=== PATIENT | male | born 1945 | race Caucasian/White ===

== ENCOUNTER → 2016-07-23 | Outpatient (CLI) | payer MEDICARE ==
[~2016-07-23] MED LIST: AMLO5TAB2 PO; ASP81CT PO; CEFU500T5 PO; DABI150C2 PO; DOXA1TAB PO; DOXY100C2 PO; ENAL5TAB PO; GLUC-116 PO; HCT25T PO; HYDR-3729 PO; MTP25TSR PO; MULT1CAP27 PO; OXYC-12 PO; RNT150T PO; SIMV20TA3 PO
--- OUTSIDE RECORDS SUMMARY | 2016-07-23 10:14 | XMS REPORT | Continuity of Care Document ---
Author Author [facility] Organization [facility] Address Unknown Phone Unavailable Care Team Providers Care Drawer Fitter Name Role Phone SNEHAL BOYLE MD PCP Insurance Providers Payer Name Policy Number Subscriber Name Relationship Wps Medicare [id number] Shay Madison 18 Self / Same As Patient Blue Cross [facility] Supp [id number] Shay Madison 18 Self / Same As Patient Advance Directives Directive Response Recorded Date/Time Advance Directives No 12/12/15 5:28pm Health Care Power of Gift Packer No 12/12/15 5:28pm Organ Donor No 12/12/15 5:28pm Resuscitation Status Full Code 12/12/15 5:28pm Chief Complaint and Reason for Visit Chief Complaint Psych/Social Disorder Reason for Visit [id number] Problems Active Problems Medical Problem Onset Date Status Intractable headache Unknown Acute Suicidal ideations Unknown Acute Visual aura Unknown Acute Medications Current Home Medications Medication Dose Units Route Directions Days/Qty Instructions Start Date Simvastatin 20 Mg 20 Mg Oral Bedtime 11/18/11 Ranitidine Hcl 150 Mg 150 Mg Oral Daily 11/18/11 Dabigatran Etexilate Mesylate 150 Mg 150 Mg Oral Twice A Day Metoprolol Succinate 25 Mg 12.5 Mg Oral Bedtime 01/28/12 Gluc/Ej-Msm#2/C/D3/Kai/Born 1 Each 1 Each Oral 12/12/15 Doxazosin Mesylate 1 Mg 1 Mg Oral Daily 12/12/15 Past Home Medications Medication Directions Ordered Status Aspirin 81 Mg Chew, 81 Mg Oral Daily 11/18/11 Discontinued Multivitamins 1 Each Capsule, 1 Each Oral Daily 11/18/11 Discontinued Oxycodone Hcl/Acetaminophen 1 Each Tablet, 1 Each Oral Every 8HRS as needed 01/28/12 Discontinued Amlodipine Besylate (Norvasc 5 Mg) 5 Mg Tablet, 5 Mg Oral Daily 07/07/14 Discontinued Oxycodone Hcl/Acetaminophen 1 Each Tablet, 1-2 Each Oral Q4-6H Prn 07/13/14 Discontinued Doxycycline Hyclate 100 Mg Capsule, 100 Mg Oral Twice A Day 04/13/15 Discontinued Hydrocodone/Acetaminophen 1 Each Tablet, 1 Each Oral Every 4HRS as needed for Pain 04/13/15 Discontinued Social History Social History Problem Response Recorded Date/Time Alcohol Use Rarely Uses 12/12/2015 5:28pm Recreational Drug Use No 12/12/2015 5:28pm Recent Foreign Travel No 12/12/2015 5:28pm Recent Infectious Disease Exposure No 12/12/2015 5:28pm Smoking Status Never a Smoker 12/12/2015 5:28pm Do you dip or chew tobacco? Yes 12/12/2015 5:28pm Query Response Start Date Stop Date Smoking Status Never a Smoker 07/13/2011 Hospital Discharge Instructions No hospital discharge instructions. Plan of Care Discharge Date 12/12/15 8:15pm Disposition 09 ADMITTED INPATIENT Condition at Discharge Stable Prescriptions See Medication Section Referrals SNEHAL BOYLE MD - Primary Care Physician Functional Status No functional status results. Allergies, Adverse Reactions, Alerts Allergen Type Severity Reaction Status Last Updated hydroxyzine HCl Allergy Unknown Active 07/13/14 hydroxyzine pamoate Allergy Unknown Active 07/13/14 Latex Allergy Mild RASH Active 07/13/14 Immunizations Name Given Type Date of Pneumonia Vaccine 08/07/11 Historical Date of Influenza Vaccine 03/22/14 Historical Vital Signs Acute Vital Signs Vital Response Date/Time Temperature (Fahrenheit) 98.2 degrees F (97.6 - 99.5) 12/12/2015 5:28pm Temperature (Calculated Celsius) 36.28554 degrees C (36.4 - 37.5) 12/12/2015 5:28pm Temperature Source Temporal 12/12/2015 5:28pm Pulse Rate (adult) 54 bpm (60 - 90) 12/12/2015 5:28pm Respiratory Rate 18 bpm (12 - 24) 12/12/2015 5:28pm O2 Sat by Pulse Oximetry 97 % (88 - 100) 12/12/2015 5:28pm Blood Pressure 144/84 mm Hg 12/12/2015 5:28pm Blood Pressure Mean 104 mm Hg 12/12/2015 5:28pm Pain Numeric Pain Scale 0-No Pain 12/12/2015 5:28pm Height (Feet) 5 feet 12/12/2015 5:28pm Height (Inches) 6 inches 12/12/2015 5:28pm Height (Calculated Centimeters) 167.343251 cm 12/12/2015 5:28pm Weight (Pounds) 172 pounds 12/12/2015 5:28pm Weight (Ounces) 4.8 oz 12/12/2015 5:28pm Weight (Calculated Grams) 89808.965 gm 12/12/2015 5:28pm Weight (Calculated Kilograms) 78.507915 kilograms 12/12/2015 5:28pm Calculated BMI 26.14 12/12/2015 5:28pm Results Laboratory Results Test Name Result Units Flags Reference Collection Date/Time Result Date/ Time Comments White Blood Count 5.7 10^3/uL 4.3-11.0 12/12/2015 5:54pm 12/12/2015 6: 11pm Red Blood Count 4.37 10^6/uL 4.35-5.85 12/12/2015 5:54pm 12/12/2015 6: 11pm Hemoglobin 13.4 G/DL 13.3-17.7 12/12/2015 5:54pm 12/12/2015 6:11pm Hematocrit 40 % 40-54 12/12/2015 5:54pm 12/12/2015 6:11pm Mean Corpuscular Volume 91 FL 80-99 12/12/2015 5:54pm 12/12/2015 6: 11pm Mean Corpuscular Hemoglobin 31 PG 25-34 12/12/2015 5:54pm 12/12/2015 6: 11pm Mean Corpuscular Hemoglobin Concent 34 G/DL 32-36 12/12/2015 5:54pm 11/2015 6:11pm Red Cell Distribution Width 13.0 % 10.0-14.5 12/12/2015 5:54pm 2015 6:11pm Platelet Count 245 10^3/uL 130-400 12/12/2015 5:54pm 12/12/2015 6:11pm Mean Platelet Volume 10.8 FL H 7.4-10.4 12/12/2015 5:54pm 12/12/2015 6: 11pm Neutrophils (%) (Auto) 50 % 42-75 12/12/2015 5:54pm 12/12/2015 6:11pm Lymphocytes (%) (Auto) 34 % 12-44 12/12/2015 5:54pm 12/12/2015 6:11pm Monocytes (%) (Auto) 11 % 0-12 12/12/2015 5:54pm 12/12/2015 6:11pm Eosinophils (%) (Auto) 4 % 0-10 12/12/2015 5:54pm 12/12/2015 6:11pm Basophils (%) (Auto) 1 % 0-10 12/12/2015 5:54pm 12/12/2015 6:11pm Neutrophils # (Auto) 2.8 X 10^3 1.8-7.8 12/12/2015 5:54pm 12/12/2015 6: 11pm Lymphocytes # (Auto) 2.0 X 10^3 1.0-4.0 12/12/2015 5:54pm 12/12/2015 6: 11pm Monocytes # (Auto) 0.6 X 10^3 0.0-1.0 12/12/2015 5:54pm 12/12/2015 6: 11pm Eosinophils # (Auto) 0.2 10^3/uL 0.0-0.3 12/12/2015 5:54pm 12/12/2015 6 :11pm Basophils # (Auto) 0.1 10^3/uL 0.0-0.1 12/12/2015 5:54pm 12/12/2015 6: 11pm Prothrombin Time 16.3 SEC H 12.2-14.7 12/12/2015 5:54pm 12/12/2015 6: 23pm INR Comment 1.3 0.8-1.4 12/12/2015 5:54pm 12/12/2015 6:23pm INTERPRETIVE DATA SUGGESTED THERAPEUTIC RANGE FOR INR'S: VENOUS THROMBOSIS, PULMONARY EMBOLISM, OR PREVENTION OF SYSTEMIC EMBOLISM (EG. IN ATRIAL FIBRILLATION): 2.0 - 3.0 MECHANICAL PROSTHETIC HEART VALVES: 2.5 - 3.5* *NOTE: INR'S UP TO 4.5 MAY BE NECESSARY IN SELECTED GROUPS OF HIGH RISK PATIENTS. SIXTH CITIZEN OF [place] [employer] CONSENSUS CONFERENCE ON ANTITHROMBOTIC THERAPY (2000). Urine Color YELLOW 12/12/2015 5:54pm 12/12/2015 6:17pm Urine Clarity CLEAR 12/12/2015 5:54pm 12/12/2015 6:17pm Urine pH 6 5-9 12/12/2015 5:54pm 12/12/2015 6:17pm Urine Specific [place] 1.010 * 1.016-1.022 12/12/2015 5:54pm 2015 6:17pm Urine Protein NEGATIVE NEGATIVE 12/12/2015 5:54pm 12/12/2015 6:17pm Urine Glucose (UA) NEGATIVE NEGATIVE 12/12/2015 5:54pm 12/12/2015 6: 17pm Urine RBC (Auto) 3+ * NEGATIVE 12/12/2015 5:54pm 12/12/2015 6:17pm Urine Ketones NEGATIVE NEGATIVE 12/12/2015 5:54pm 12/12/2015 6:17pm Urine Nitrite NEGATIVE NEGATIVE 12/12/2015 5:54pm 12/12/2015 6:17pm Urine Bilirubin NEGATIVE NEGATIVE 12/12/2015 5:54pm 12/12/2015 6: 17pm Urine Urobilinogen NORMAL MG/DL NORMAL 12/12/2015 5:54pm 12/12/2015 6: 17pm Urine Leukocyte Esterase NEGATIVE NEGATIVE 12/12/2015 5:54pm 2015 6:17pm Urine RBC 2-5 /HPF * 12/12/2015 5:54pm 12/12/2015 6:17pm Urine WBC NONE /HPF 12/12/2015 5:54pm 12/12/2015 6:17pm Urine Bacteria NONE /HPF 12/12/2015 5:54pm 12/12/2015 6:17pm Urine Squamous Epithelial Cells RARE /HPF 12/12/2015 5:54pm 2015 6:17pm Urine Crystals NONE /LPF 12/12/2015 5:54pm 12/12/2015 6:17pm Urine Casts NONE /LPF 12/12/2015 5:54pm 12/12/2015 6:17pm Urine Mucus NEGATIVE /LPF 12/12/2015 5:54pm 12/12/2015 6:17pm Urine Culture Indicated NO 12/12/2015 5:54pm 12/12/2015 6:17pm Sodium Level 141 MMOL/L 135-145 12/12/2015 5:54pm 12/12/2015 6:36pm Potassium Level 4.5 MMOL/L 3.6-5.0 12/12/2015 5:54pm 12/12/2015 6:36pm Chloride Level 106 MMOL/L 98-107 12/12/2015 5:54pm 12/12/2015 6:36pm Carbon Dioxide Level 26 MMOL/L 21-32 12/12/2015 5:54pm 12/12/2015 6: 36pm Anion Gap 9 MMOL/L 5-14 12/12/2015 5:54pm 12/12/2015 6:36pm Blood Urea Nitrogen 17 MG/DL 7-18 12/12/2015 5:54pm 12/12/2015 6:36pm Creatinine 1.25 MG/DL 0.60-1.30 12/12/2015 5:54pm 12/12/2015 6:36pm BUN/Creatinine Ratio 14 12/12/2015 5:54pm 12/12/2015 6:36pm Estimat Glomerular Filtration Rate 57 12/12/2015 5:54pm 12/12/2015 6:36pm GFR INTERPRETIVE DATA UNITS FOR ESTIMATED GFR (eGFR): mL/min/1.73 M2 REFERENCE RANGE FOR ESTIMATED GFR (eGFR) eGFR NORMAL eGFR >60 MODERATELY DECREASED eGFR 30-59 SEVERLY DECREASED eGFR 15-29 KIDNEY FAILURE <15 (OR DIALYSIS) Glucose Level 88 MG/DL 70-105 12/12/2015 5:54pm 12/12/2015 6:36pm Calcium Level 9.0 MG/DL 8.5-10.1 12/12/2015 5:54pm 12/12/2015 6:36pm Total Bilirubin 0.4 MG/DL 0.1-1.0 12/12/2015 5:54pm 12/12/2015 6:36pm Alkaline Phosphatase 57 U/L 40-136 12/12/2015 5:54pm 12/12/2015 6:36pm Aspartate Amino Transf (AST/SGOT) 22 U/L 5-34 12/12/2015 5:54pm 2015 6:36pm Alanine Aminotransferase (ALT/SGPT) 13 U/L 0-55 12/12/2015 5:54pm 12/11 6:36pm Total Protein 7.2 G/DL 6.4-8.2 12/12/2015 5:54pm 12/12/2015 6:36pm Albumin 4.2 G/DL 3.2-4.5 12/12/2015 5:54pm 12/12/2015 6:36pm Salicylates Level < 5.0 MG/DL L 5.0-20.0 12/12/2015 5:54pm 12/12/2015 6: 36pm Acetaminophen Level < 10 UG/ML L 10-30 12/12/2015 5:54pm 12/12/2015 6: 36pm Acetaminophen Screen NEGATIVE NEGATIVE 12/12/2015 5:54pm 12/12/2015 6 :27pm APAP=ACETAMINOPHEN/PARACETAMOL Procedures Procedure Status Date Provider(s) Tracing only of electrocardiogram Active 12/12/15 GOLD ROSENBAUM APRN Encounters Encounter Location Arrival/Admit Date Discharge/Depart Date Attending Provider Departed Emergency Room [facility] 12/12/15 5:15pm 12/11 8:15pm GOLD ROSENBAUM APRN Recent Diagnosis
--- NOTE | 2016-07-23 10:38 | Diagnostic Imaging Report ---
INDICATION: Right foot pain 3 views right foot show a nondisplaced fracture of the fifth metatarsal. IMPRESSION: Nondisplaced oblique fracture of the shaft of the fifth metacarpal. Dictated by: Dictated on workstation # [id number]
--- NOTE | 2016-07-23 13:38 | Diagnostic Imaging Report ---
INDICATION: Right ankle pain. TECHNIQUE: AP, oblique, and lateral views of right ankle are obtained. FINDINGS: No fracture or acute bony abnormality seen. There is mild plantar calcaneal spurring. IMPRESSION: Negative right ankle. Dictated by: Dictated on workstation # [id number]
== END ==
LOC: RAD 10:10
PROVIDERS: ATTEND Nurse Practitioner Family
DX: M79.671 Pain in right foot (principal)
CPT/HCPCS: 73610; 73630

== ENCOUNTER 2018-07-16 14:58 | Emergency (ER) | payer MEDICARE ==
[~2018-07-16] VITALS: Ht 170.2 cm; Wt 87.5 kg
[2018-07-16] MEDS ORDERED: LIDOCAINE 1% INJ 20 ML 20 ML VIAL INJ ONE (15:15)
[2018-07-16] MEDS ORDERED: LIDOCAINE/EPI 2% 1:100,00 (XYLOCAINE) 20 ML VIAL ONE (16:01)
--- NOTE | 2018-07-16 16:12 | Diagnostic Imaging Report ---
PROCEDURE: CT head and CT cervical spine without contrast. TECHNIQUE: Multiple contiguous axial images were obtained through the brain and cervical spine without the use of intravenous contrast. Sagittal and coronal reformations through the cervical spine were then performed. INDICATION: Fall with head and neck injury. Left scalp laceration. COMPARISON: 04/12/2015. FINDINGS: CT HEAD: The ventricles and cortical sulci appear mildly prominent. No acute intracranial hemorrhage is seen. There is no midline shift or mass effect. There is no CT evidence of acute territorial ischemia. There are areas of hypoattenuation in the periventricular and subcortical white matter. The calvarium is intact. There is a deep laceration of the left frontal scalp extending down to the bone, with a moderate-sized left frontoparietal scalp hematoma measuring 5.6 cm AP. The visualized paranasal sinuses appear clear. CT CERVICAL SPINE: The cervical spine demonstrates mild reversal of the cervical lordosis centered at C5. No significant spondylolisthesis is seen. There are advanced degenerative changes at C5-6 and C6-7, mild degenerative changes elsewhere. The vertebral body heights are generally preserved. No acute fracture is seen. There is multilevel facet arthropathy. No bony fragments or hyperdense fluid collections are seen in the spinal canal. There is foraminal narrowing at multiple levels due to the degenerative change. The soft tissues about the cervical spine are otherwise unremarkable. A calcified granuloma is noted in the right lung apex. IMPRESSION: 1. Deep left frontal scalp laceration with left frontoparietal scalp hematoma. No calvarium fracture or intracranial hemorrhage is seen. 2. Generalized parenchymal volume loss with findings of chronic microvascular disease. No CT evidence of acute territorial ischemia. 3. Degenerative changes in the cervical spine with no acute fracture seen. Dictated by: Dictated on workstation # [id number]
--- NOTE | 2018-07-16 16:54 | ED Head Injury ---
General Chief Complaint: Laceration Stated Complaint: FALL Nursing Triage Note: PATIENT HERE BY PERSONAL VEHICLE AFTER FALLING AT HOME FROM SLIPPING ON THE ICE AND HITTING HIS YEAH ON CONCRETE. PATIENT HAS A LARGE LACERATION TO THE LEFT SIDE OF HIS SCALP. Source: patient Exam Limitations: no limitations History of Present Illness Date Seen by Provider: Jul 16, 2018 Time Seen by Provider: 15:00 Initial Comments 73-year-old male who presents to the emergency room accompanied by his after falling at home caused by slipping on ice. He reports that he fell and hit a ornamental rock along his driveway. He has a 14 cm laceration in a V shape to his scalp. He reports that he is on blood thinners, denies loss of consciousness or neck pain. He is up-to-date on his tetanus vaccine. Loss of Consciousness: no loss of consciousness Associated Systoms: Denies Symptoms Allergies and Home Medications Allergies Coded Allergies: latex (Unverified Allergy, Mild, RASH, 07/13/14) hydroxyzine HCl (Verified Allergy, Unknown, 07/13/14) hydroxyzine pamoate (Verified Allergy, Unknown, 07/13/14) Home Medications Dabigatran Etexilate Mesylate 150 Mg Capsule, 150 MG PO BID, (Reported) Doxazosin Mesylate 1 Mg Tablet, 1 MG PO DAILY, (Reported) Metoprolol Succinate 25 Mg Tab.sr.24h, 12.5 MG PO HS, (Reported) Ranitidine Hcl 150 Mg Tablet, 150 MG PO DAILY, (Reported) Simvastatin 20 Mg Tablet, 20 MG PO HS, (Reported) Patient Home Medication List Home Medication List Reviewed: Yes Review of Systems Review of Systems Constitutional: no symptoms reported, see HPI Skin: see HPI, other (left-sided scalp laceration) All Other Systems Reviewed Negative Unless Noted: Yes Past Eiyrhxp-Rcjnxp-[place] Hx Past Med/Social Hx: Reviewed Nursing Past Med/Soc Hx Patient Social History Recent Foreign Travel: No Contact w/Someone Who Travel: No Recent Infectious Disease Expo: No Immunizations Up To Date Date of Pneumonia Vaccine: Aug 07, 2011 Date of Influenza Vaccine: Mar 22, 2014 Past Medical History Bowel Surgery, Pacemaker Atrial Fibrillation, High Cholesterol, Hypertension Headaches /Migraines Reproductive Disorders: Yes Family Medical History Reviewed Nursing Family Hx No Pertinent Family Hx Physical Exam Vital Signs Vital Signs - First Documented 07/16/18 15:00 Temp 97.9 Pulse 92 Resp 16 B/P (MAP) 176/95 (122) Pulse Ox 99 O2 Delivery Room Air Capillary Refill : Less Than 3 Seconds Height, Weight, BMI Height: 5'7.00" Weight: 193lbs. 0oz. 87.025209fr; 26.14 BMI Method:Stated General Appearance: WD/WN, no apparent distress HEENT: PERRL/EOMI, normal ENT inspection, TMs normal, pharynx normal Neck: non-tender, full range of motion, supple, normal inspection Cardiovascular: normal peripheral pulses, regular rate, rhythm, no edema, no gallop, no JVD, no murmur Respiratory: chest non-tender, lungs clear, normal breath sounds, no respiratory distress, no accessory muscle use Extremities: normal range of motion, normal capillary refill Psychiatric: alert, oriented x 3 Procedures/Interventions Wound Location: Scalp Other Wound Location See images for location Staple Repair: Stapler 35W (20 zaida to close wound.) Progress/Results/Core Measures Results/Orders My Orders Medications Given in ED Vital Signs/I&O Blood Pressure Mean: 122 Departure Impression Primary Impression: Laceration Additional Impressions: Fall from slipping on ice Minor head injury Disposition: 01 HOME, SELF-CARE Condition: Stable/Unchanged Departure-Patient Inst. Decision time for Depature: 16:55 Referrals: SNEHAL BOYLE MD (PCP/Family) Primary Care Physician Patient Instructions: Laceration Repair With Zaida (DC), Minor Head Injury ( DC) Add. Discharge Instructions: Watch for signs of infection such as increased redness, swelling, drainage, pain. Zaida out in 7-10 days. Change the dressing daily or if it should become saturated. If the wound should start bleeding hold direct pressure at the location of the bleeding, if this does not stop return back to the emergency room. You may return back to the emergency room to have these removed or it your primary care office. Return back to the emergency room for any signs of infection, change in level of consciousness, acting differently, severe nausea and vomiting, or any other concerns as needed. All discharge instructions reviewed with patient and/or family. Voiced understanding. LILY HAM Jul 16, 2018 16:53
[2018-07-16 17:00] VITALS: BP 176/95
== END 2018-07-16 17:04 | disposition home or self-care (01) ==
LOC: EDUNIT# 14:58 → ER 14:59
DX: S09.90XA Unspecified injury of head, initial encounter (principal); S01.01XA Laceration without foreign body of scalp, initial encounter; I48.91 Unspecified atrial fibrillation; I10 Essential (primary) hypertension; E78.00 Pure hypercholesterolemia, unspecified; G43.909 Migraine, unspecified, not intractable, without status migrainosus; Z95.0 Presence of cardiac pacemaker; Z91.040 Latex allergy status; Z88.8 Allergy status to other drugs, medicaments and biological substances; W00.0XXA Fall on same level due to ice and snow, initial encounter; Y92.009 Unspecified place in unspecified non-institutional (private) residence as the place of occurrence of the external cause
CPT/HCPCS: 70450; 72125

== ENCOUNTER → 2018-07-16 | Outpatient (CLI) | payer MEDICARE | LOC: CARD 13:31 | PROVIDERS: ATTEND Internal Medicine Cardiovascular Disease | DX: I45.2 Bifascicular block (principal); I10 Essential (primary) hypertension; I34.0 Nonrheumatic mitral (valve) insufficiency | CPT/HCPCS: 93306 ==

== ENCOUNTER 2018-09-16 09:23 | Outpatient (CLI) | payer MEDICARE ==
[~2018-09-16] VITALS: Ht 170.2 cm; Wt 86.9 kg
[2018-09-16] MEDS ORDERED: LOSA50TA63 PO (09:51)
[2018-09-16] MEDS ORDERED: LORA0.5T PO (09:51)
[2018-09-16] MEDS ORDERED: DOXA2TAB2 PO (09:51)
[2018-09-16] MEDS ORDERED: SIMV20TA3 PO (09:51)
[2018-09-16] MEDS ORDERED: METO-387 PO (09:51)
[2018-09-16] MEDS ORDERED: DABI150C5 PO (09:51)
[2018-09-16] MEDS ORDERED: ESCI20TA45 PO (09:51)
[2018-09-16] MEDS ORDERED: RANI150T11 PO (09:51)
[2018-09-16 09:57] VITALS: BP 131/91
[2018-09-16 10:28] LABS: BILIRUBIN,URINE NEGATIVE (NEGATIVE); CLARITY,URINE CLEAR; COLOR,URINE YELLOW; GLUCOSE, URINE (UA) NEGATIVE (NEGATIVE); KETONES,URINE NEGATIVE (NEGATIVE); LEUKOCYTE ESTERASE ,URINE NEGATIVE (NEGATIVE); NITRITE,URINE NEGATIVE (NEGATIVE); PH,URINE 6 (5-9); PROTEIN,URINE NEGATIVE (NEGATIVE); UROBILINOGEN,URINE NORMAL (NORMAL)
[2018-09-16 10:29] LABS: BASOPHILS % (AUTO) 1 % (0-10); EOSINOPHILS # (AUTO) 0.2 10^3/uL (0.0-0.3); EOSINOPHILS % (AUTO) 6 % (0-10); HEMATOCRIT 37 % (40-54); HEMOGLOBIN 12.4 G/DL (13.3-17.7); LYMPHOCYTES # (AUTO) 1.1 X 10^3 (1.0-4.0); LYMPHOCYTES % (AUTO) 28 % (12-44); MEAN CORPUSCULAR HGB CONC 33 G/DL (32-36); MEAN CORPUSCULAR VOLUME 91 FL (80-99); MEAN PLATELET VOLUME 10.4 FL (7.4-10.4); MONOCYTES # (AUTO) 0.3 X 10^3 (0.0-1.0); MONOCYTES % (AUTO) 9 % (0-12); NEUTROPHILS # (AUTO) 2.1 X 10^3 (1.8-7.8); NEUTROPHILS % (AUTO) 56 % (42-75); PLATELET COUNT 213 10^3/uL (130-400); RED CELL DISTRIBUTION WIDTH 12.9 % (10.0-14.5); WHITE BLOOD COUNT 3.7 10^3/uL (4.3-11.0)
[2018-09-16 10:36] LABS: MEAN CORPUSCULAR HEMOGLOBIN 30 PG (25-34)
[2018-09-16 10:37] LABS: BACTERIA,URINE NEGATIVE /HPF
[2018-09-16 10:38] LABS: INR 1.4 (0.8-1.4); PROTHROMBIN TIME PATIENT 17.9 SEC (12.2-14.7)
[2018-09-16 10:44] LABS: BUN/CREATININE RATIO 11; CALCIUM 8.9 MG/DL (8.5-10.1); CARBON DIOXIDE 23 MMOL/L (21-32); CHLORIDE 104 MMOL/L (98-107); CREATININE SERUM 1.15 MG/DL (0.60-1.30); GFR ESTIMATED > 60; GLUCOSE 92 MG/DL (70-105); SODIUM 135 MMOL/L (135-145)
--- NOTE | 2018-09-16 15:05 | Diagnostic Imaging Report ---
INDICATION: Preop screening prior to knee arthroplasty. PA and lateral views were obtained. FINDINGS: There is mild cardiomegaly and some ectasia of the thoracic aorta. There is no pleural effusion, pneumothorax or pneumonia. Mediastinum is unremarkable. IMPRESSION: 1. No acute cardiopulmonary abnormality. 2. Mild cardiomegaly and some ectasia of the thoracic aorta. Dictated by: Dictated on workstation # [id number]
[2018-09-16] MEDS ORDERED: GLUC1CAP37 PO (15:48)
== END 2018-09-16 15:35 | disposition home or self-care (01) ==
LOC: PREOP 09:23
PROVIDERS: ATTEND Orthopaedic Surgery
DX: Z01.811 Encounter for preprocedural respiratory examination (principal); Z01.812 Encounter for preprocedural laboratory examination; Z11.2 Encounter for screening for other bacterial diseases; M17.11 Unilateral primary osteoarthritis, right knee; R53.83 Other fatigue; M79.661 Pain in right lower leg; Z22.322 Carrier or suspected carrier of Methicillin resistant Staphylococcus aureus
CPT/HCPCS: 36415; 71046; 80048; 81000; 85025; 85610; 86850; 86900; 86901; 87081

== ENCOUNTER 2018-09-21 08:40 | Inpatient (IN) | payer MEDICARE | END 2018-09-23 16:34 | disposition home or self-care (01) | LOC: 4TH 08:40 → SURG 08:41 → 4TH 09-23 13:58 ==

== ENCOUNTER 2021-05-07 05:35 | Outpatient (CLI) | payer MEDICARE ==
[~2021-05-07] VITALS: Ht 170.2 cm; Wt 85.2 kg
[~2021-05-07 05:35] MED LIST changes: +ACHYD1T PO; +DABI150C5 PO; +DOXA2TAB2 PO; -DOXY100C2 PO; +DOXY100C5 PO; +ESCI20TA39 PO; +GLUC1CAP37 PO; +LORA0.5T PO; +LOSA50TA63 PO; +POLY17PO54 PO; +RANI150T11 PO; +SENN-20 PO; +SIMV20TA26 PO
[2021-05-07] MEDS ORDERED: DOXA4TAB2 PO (09:43)
[2021-05-07] MEDS ORDERED: TRAM50TA3 PO (09:43)
[2021-05-07] MEDS ORDERED: FAMO20TA3 PO (09:43)
[2021-05-07] MEDS ORDERED: LOSA100T57 PO (09:43)
== END 2021-05-07 11:34 | disposition home or self-care (01) ==
LOC: PREOP 05:35
PROVIDERS: ATTEND Surgery
DX: Z01.818 Encounter for other preprocedural examination (principal)

== ENCOUNTER → 2021-05-14 | Day surgery (SDC) | payer MEDICARE ==
[~2021-05-14] VITALS: Ht 170.2 cm; Wt 85.2 kg
[~2021-05-14] MED LIST changes: +DOXA4TAB2 PO; +FAMO20TA3 PO; +LACTATED RINGERS 1,000 ML IV STA; +LOSA100T57 PO; +PROPOFOL INJECTION 50 ML IV ONE; +TRAM50TA3 PO
[2021-05-14 07:50] VITALS: BP 127/87
[2021-05-14 10:09] VITALS: BP 92/54
[2021-05-14 10:14] VITALS: BP 94/56
--- NOTE | 2021-05-14 10:15 | Progress Note-Post Operative ---
Post-Operative Progess Note Surgeon (s)/Ore Dryer (s) Surgeon TERRY BERRY DO Ore Dryer: na Pre-Operative Diagnosis screening colonoscopy Post-Operative Diagnosis colon polyps diverticulosis Procedure & Operative Findings Date of Procedure 05/14/21 Procedure Performed/Findings colonoscopy c hot bx polypectomy x 5 Anesthesia Type per website optimization strategist Estimated Blood Loss Estimated blood loss (mL): minimal Specimens/Packing Specimens Removed colon polyps TERRY BERRY DO May 14, 2021 10:14
--- NOTE | 2021-05-14 10:15 | Discharge Inst-Simple/Standard ---
Discharge Inst-Standard Patient Instructions/Follow Up Plan of Care/Instructions/FU: 2 weeks Kg. Restart Pradaxa in 3 days. Activity as Tolerated: Yes Discharge Diet: Regular Diet (high fiber) TERRY BERRY DO May 14, 2021 10:15
[2021-05-14 10:19] VITALS: BP 131/65
[2021-05-14 10:43] VITALS: BP 131/65
--- NOTE | 2021-05-14 15:12 | Anesthesia-General Post-Op ---
MAC Patient Condition Mental Status/LOC: Same as Preop Cardiovascular: Satisfactory Nausea/Vomiting: Absent Respiratory: Satisfactory Pain: Controlled Complications: Absent Post Op Complications Complications None Follow Up Care/Instructions Patient Instructions None needed. Anesthesiology Discharge Order Discharge Order Patient is doing well, no complaints, stable vital signs, no apparent adverse anesthesia problems. No complications reported per nursing. NAVI DAVIS CRNA May 14, 2021 15:11
--- NOTE | 2021-05-14 16:40 | OPERATIVE REPORT ---
DATE OF SERVICE: PREOPERATIVE DIAGNOSIS: Screening colonoscopy. POSTOPERATIVE DIAGNOSES: Colon polyps, diverticulosis. PROCEDURES PERFORMED: Colonoscopy with hot biopsy polypectomy x5. SURGEON: Terry Saul DO. ANESTHESIA: Per OBJECT ORIENTED PROGRAMMER. ESTIMATED BLOOD LOSS: None. COMPLICATIONS: None. INDICATIONS FOR PROCEDURE: The patient is a 76-year-old male with need for colonoscopy. He was referred by his primary care provider. He understands the risks and benefits of the procedure and wished to proceed. Consent was signed in the chart. DESCRIPTION OF PROCEDURE: The patient was taken to the endoscopy suite and placed in a left lateral recumbent position. A timeout was performed. Digital rectal exam was performed. There were no palpable polyps, masses or ulcerations. Scope was inserted in the rectum and advanced all the way to the cecum with minimal difficulty. Prep was adequate. Scope was then slowly retracted back. No polyps, masses or ulcerations within the cecum. In the ascending colon, there were two polyps, which hot biopsy polypectomy was performed. Scope was then continuously and slowly retracted back. In the transverse colon, two small polyps were present, which hot biopsy polypectomies were performed. Scope was then continuously and slowly retracted back. No polyps, masses or ulcerations in the remainder of the transverse, descending and sigmoid colon. In the sigmoid colon, diverticulosis was present. Once in the rectum, another polyp was present, which hot biopsy polypectomy was performed. Scope was retroflexed noting no other pathology. Scope was returned to its normal position, slowly withdrawn until completely removed. The patient tolerated the procedure well without any complications and taken to the recovery room in a stable condition. RECOMMENDATIONS: The patient will need a repeat colonoscopy on as needed basis and if benefits outweigh the risks. Job ID: [id number] DocumentID: [id number] Dictated Date: 05/14/2021 10:18:05 Principal Strategist Date: 05/14/2021 16:39:33 Dictated By: TERRY SAUL DO
== END ==
LOC: ENDO 07:27
PROVIDERS: ATTEND Surgery
DX: Z12.11 Encounter for screening for malignant neoplasm of colon (principal); D12.2 Benign neoplasm of ascending colon; D12.3 Benign neoplasm of transverse colon; K57.30 Diverticulosis of large intestine without perforation or abscess without bleeding; I10 Essential (primary) hypertension; I48.91 Unspecified atrial fibrillation; K21.9 Gastro-esophageal reflux disease without esophagitis; E66.9 Obesity, unspecified; F32.A Depression, unspecified; E78.00 Pure hypercholesterolemia, unspecified; Z79.01 Long term (current) use of anticoagulants; Z91.040 Latex allergy status; Z79.899 Other long term (current) drug therapy; Z87.891 Personal history of nicotine dependence; Z68.29 Body mass index [BMI] 29.0-29.9, adult; Z79.891 Long term (current) use of opiate analgesic

== ENCOUNTER 2021-05-20 04:39 | Emergency (ER) | payer MEDICARE ==
[~2021-05-20] VITALS: Ht 170 cm; Wt 82.0 kg
[~2021-05-20 04:39] MED LIST changes: -LACTATED RINGERS 1,000 ML IV STA; -PROPOFOL INJECTION 50 ML IV ONE
[2021-05-20 05:40] LABS: BASOPHILS # (AUTO) 0.1 10^3/uL (0.0-0.1); BASOPHILS % (AUTO) 1 % (0-10); EOSINOPHILS # (AUTO) 0.3 10^3/uL (0.0-0.3); EOSINOPHILS % (AUTO) 6 % (0-10); HEMATOCRIT 34 % (40-54); HEMOGLOBIN 11.1 g/dL (13.3-17.7); LYMPHOCYTES # (AUTO) 1.5 10^3/uL (1.0-4.0); LYMPHOCYTES % (AUTO) 29 % (12-44); MEAN CORPUSCULAR HEMOGLOBIN 30 pg (25-34); MEAN CORPUSCULAR HGB CONC 33 g/dL (32-36); MEAN CORPUSCULAR VOLUME 93 fL (80-99); MONOCYTES # (AUTO) 0.6 10^3/uL (0.0-1.0); MONOCYTES % (AUTO) 12 % (0-12); NEUTROPHILS # (AUTO) 2.7 10^3/uL (1.8-7.8); NEUTROPHILS % (AUTO) 51 % (42-75); PLATELET COUNT 237 10^3/uL (130-400); WHITE BLOOD COUNT 5.2 10^3/uL (4.3-11.0)
--- NOTE | 2021-05-20 05:53 | ED Abdominal Pain ---
General Chief Complaint: Rect Problems Stated Complaint: POST OP COLONOSCOPY,PASSING RED BLOOD Source of Information: Patient Exam Limitations: No Limitations History of Present Illness Date Seen by Provider: May 20, 2021 Time Seen by Provider: 05:04 Initial Comments This 76 year old gentleman presents to the ER with complaint so rectal bleeding and some vague minimal discomfort and bloating of the lower abdomen after having colonoscopy with polypectomies and biopsies last Thursday. He restarted Pradaxa on Thursday and began having bleeding on Thursday. No fever. No lightheadedness, SOA, of weakness. Allergies and Home Medications Allergies Coded Allergies: bacitracin (Verified Allergy, Mild, RASH, 09/16/18) latex (Unverified Allergy, Mild, RASH, 07/13/14) neomycin (Verified Allergy, Mild, RASH, 09/16/18) polymyxin B (Verified Allergy, Mild, RASH, 09/16/18) hydroxyzine HCl (Verified Allergy, Unknown, 07/13/14) hydroxyzine pamoate (Verified Allergy, Unknown, 07/13/14) Patient Home Medication List Home Medication List Reviewed: Yes Dabigatran Etexilate Mesylate (Pradaxa) 150 Mg Capsule, 150 MG PO BID, (Reported) Entered as Reported by: ALEYDA VAZQUEZ on 09/16/18 0951 Doxazosin Mesylate (Doxazosin Mesylate) 4 Mg Tablet, 4 MG PO BID, (Reported) Entered as Reported by: MARY LOU PAUL on 05/07/21 0943 Escitalopram Oxalate (Escitalopram Oxalate) 20 Mg Tablet, 30 MG PO HS, (Reported) Entered as Reported by: ALEYDA VAZQUEZ on 09/16/18 0951 Famotidine (Acid Director Human Services (FAMOTIDINE)) 20 Mg Tablet, 20 MG PO DAILY, (Reported) Entered as Reported by: MARY LOU PAUL on 05/07/21 0943 Glucosa Nicole 2Kcl/Chondroitin Nicole (Glucosamine & Chondroitin Cap) 1 Each Capsule, 1 CAP PO DAILY, (Reported) Entered as Reported by: BALJEET PEREYRA on 09/16/18 1548 Lorazepam (Lorazepam) 0.5 Mg Tablet, 0.5 MG PO BID, (Reported) Entered as Reported by: ALEYDA VAZQUEZ on 09/16/18 0951 Losartan Potassium (Losartan Potassium) 100 Mg Tablet, 100 MG PO DAILY, (Reported) Entered as Reported by: MARY LOU PAUL on 05/07/21 0943 Metoprolol Succinate (Metoprolol Succinate) 25 Mg Tab.er.24h, 12.5 MG PO HS, (Reported) Entered as Reported by: ALEYDA VAZQUEZ on 09/16/18 0951 Ranitidine HCl (Ranitidine HCl) 150 Mg Tablet, 150 MG PO DAILY, (Reported) Entered as Reported by: ALEYDA VAZQUEZ on 09/16/18 0951 Simvastatin (Simvastatin) 20 Mg Tablet, 20 MG PO HS, (Reported) Entered as Reported by: ALEYDA VAZQUEZ on 09/16/18 0951 Tramadol HCl (Tramadol HCl) 50 Mg Tablet, 50 MG PO DAILY, (Reported) Entered as Reported by: MARY LOU PAUL on 05/07/21 0943 Review of Systems Review of Systems Constitutional: no symptoms reported EENTM: No Symptoms Reported Respiratory: No Symptoms Reported Cardiovascular: No Symptoms Reported Gastrointestinal: See HPI Genitourinary: No Symptoms Reported Musculoskeletal: no symptoms reported Skin: no symptoms reported Psychiatric/Neurological: No Symptoms Reported Endocrine: No Symptoms Reported Hematologic/Lymphatic: No Symptoms Reported Past Xafcvle-Uuqltd-Ompulc Hx Patient Social History Tobacco Use?: No Use of E-Cig and/or Vaping dev: No Substance use?: No Alcohol Use?: No Immunizations Up To Date First/Initial COVID19 Vaccinat: AUGUST 2020 Second COVID19 Vaccination Leonides: SEPTEMBER 2020 Seasonal Allergies Seasonal Allergies: No Past Medical History Surgeries: Yes (abdominal exploration-BOWEL OBSTRUCTION, PACEMAKER AND REMOVAL,) Abdominal (colonoscopy with polypectomy), Bowel Surgery, Pacemaker, Vasectomy Respiratory: No Cardiac: Yes (HX PACEMAKER INSERTION AND REMOVAL, BRADYCARDIA) Atrial Fibrillation, High Cholesterol, Hypertension Neurological: Yes (SYNCOPE FROM BRADYCARDIA) Headaches /Migraines Reproductive Disorders: Yes Sexually Transmitted Disease: No HIV/AIDS: No Genitourinary: No Gastrointestinal: Yes Gastroesophageal Reflux, Polyps Musculoskeletal: Yes (CHRONIC NECK PAIN) Endocrine: No HEENT: Yes Loss of Vision: Bilateral Hearing Impairment: Hard of Hearing Cancer: No Psychosocial: Yes Depression Integumentary: No Blood Disorders: No Adverse Reaction/Blood Tranf: No (N/A) Family Medical History Heart Disease, Hypertension Physical Exam Vital Signs Vital Signs - First Documented 05/20/21 05:10 Temp 36.5 Pulse 60 Resp 16 B/P (MAP) 141/80 (100) Pulse Ox 98 O2 Delivery Room Air Capillary Refill : Height/Weight/BMI Height: 5'7.00" Weight: 191lbs. 8.0oz. [id number]; 29.41 BMI Method:Stated General Appearance: WD/WN, no apparent distress HEENT: normal ENT inspection Neck: normal inspection Respiratory: lungs clear, normal breath sounds, no respiratory distress Cardiovascular: regular rate, rhythm, no edema, no murmur Gastrointestinal: normal bowel sounds, soft, tenderness (vague discomfort in the lower pelvic region) Rectal: normal rectal tone, hemorrhoids (external), other (Red blood at the anus without active bleeding noted. No fissures.) Extremities: normal inspection, no pedal edema Neurologic/Psychiatric: no motor/sensory deficits, alert, normal mood/affect, oriented x 3 Skin: normal color, warm/dry Progress/Results/Core Measures Results/Orders Lab Results Laboratory Tests Test 05/20/21 05:35 Range/Units White Blood Count 5.2 4.3-11.0 10^3/uL Red Blood Count 3.67 L 4.30-5.52 10^6/uL Hemoglobin 11.1 L 13.3-17.7 g/dL Hematocrit 34 L 40-54 % Mean Corpuscular Volume 93 80-99 fL Mean Corpuscular Hemoglobin 30 25-34 pg Mean Corpuscular Hemoglobin Concent 33 32-36 g/dL Red Cell Distribution Width 13.0 10.0-14.5 % Platelet Count 237 130-400 10^3/uL Mean Platelet Volume 10.0 9.0-12.2 fL Immature Granulocyte % (Auto) 0 % Neutrophils (%) (Auto) 51 42-75 % Lymphocytes (%) (Auto) 29 12-44 % Monocytes (%) (Auto) 12 0-12 % Eosinophils (%) (Auto) 6 0-10 % Basophils (%) (Auto) 1 0-10 % Neutrophils # (Auto) 2.7 1.8-7.8 10^3/uL Lymphocytes # (Auto) 1.5 1.0-4.0 10^3/uL Monocytes # (Auto) 0.6 0.0-1.0 10^3/uL Eosinophils # (Auto) 0.3 0.0-0.3 10^3/uL Basophils # (Auto) 0.1 0.0-0.1 10^3/uL Immature Granulocyte # (Auto) 0.0 0.0-0.1 10^3/uL My Orders Orders - GWYN TORRES MD Cbc With Automated Diff (05/20/21 05:04) Ed Iv/Invasive Line Start (05/20/21 05:34) Vital Signs/I&O 05/20/21 05/20/21 05:10 06:10 Temp 36.5 Pulse 60 62 Resp 16 16 B/P (MAP) 141/80 (100) 134/89 Pulse Ox 98 97 O2 Delivery Room Air Room Air Progress Progress Note : Progress Note CBC was unremarkable. There was no active bleeding. Patient advised to hold Pradaxa for 2 days and follow-up with Dr. Berry. Departure Impression Primary Impression: Rectal bleeding Disposition: HOME, SELF-CARE Condition: Stable Departure-Patient Inst. Decision time for Depature: 05:51 Referrals: SNEHAL BOYLE MD (PCP/Family) Primary Care Physician Patient Instructions: Gastrointestinal Bleeding Add. Discharge Instructions: Your hemoglobin was stable at 11.1. You had no elevation in your white blood cell count or fever to suggest infection. Your bleeding may be due to incomplete healing of the biopsy sites in the context of Pradaxa. Adhere to a clear liquid diet today. This will allow your bowels to rest and your biopsy sites to heal. Skip your doses of Pradaxa today and tomorrow. Please let Dr. Berry know you are experiencing bleeding. Call with questions or concerns. Return to the ER if you are having worsening symptoms, especially if you develop fever, escalating abdominal pain, escalating rectal bleeding, shortness of breath, lightheadedness, or fevers. All discharge instructions reviewed with patient and/or family. Voiced understanding. Copy Copies To 1: TERRY BERRY DO Copies To 2: SNEHAL BOYLE MD, JOSHUA T MD May 20, 2021 05:53
[2021-05-20 06:10] VITALS: BP 134/89
== END 2021-05-20 06:10 | disposition home or self-care (01) ==
LOC: EDUNIT# 04:39 → ER 04:42
DX: K62.5 Hemorrhage of anus and rectum (principal); I10 Essential (primary) hypertension; K21.9 Gastro-esophageal reflux disease without esophagitis; E78.00 Pure hypercholesterolemia, unspecified; I48.91 Unspecified atrial fibrillation; F32.9 Major depressive disorder, single episode, unspecified; Z79.01 Long term (current) use of anticoagulants; Z79.899 Other long term (current) drug therapy
CPT/HCPCS: 36415; 85025

== ENCOUNTER 2021-06-26 15:41 | Emergency (ER) | payer MEDICARE ==
[~2021-06-26] VITALS: Ht 170 cm; Wt 84.0 kg
--- NOTE | 2021-06-26 16:01 | ED Syncope ---
General Chief Complaint: Dizziness/Syncope Stated Complaint: SYNCOPE Source of Information: Patient, EMS History of Present Illness Date Seen by Provider: Jun 26, 2021 Time Seen by Provider: 15:44 Initial Comments 76-year-old male with past medical history of diabetes, paroxysmal A. fib on Pradaxa, hypertension coming in via EMS from a physician's office after syncopal episode. He apparently was having his blood drawn, it took 4 attempts all unsuccessful, and during the fourth attempt he became lightheaded, sweaty, and was about to pass out. He says he does not believe he fully passed out. He never hit his head. He has been ambulatory. Blood pressure was initially low, but by the time EMS arrived it was normal. He is denying any chest pain, shortness of breath, abdominal pain, nausea, vomiting, diarrhea, fever, chills, weakness, numbness, vision changes, headache, neck stiffness, or any other concerns. He says he has been eating and drinking today. Allergies and Home Medications Allergies Coded Allergies: bacitracin (Verified Allergy, Mild, RASH, 09/16/18) latex (Unverified Allergy, Mild, RASH, 07/13/14) neomycin (Verified Allergy, Mild, RASH, 09/16/18) polymyxin B (Verified Allergy, Mild, RASH, 09/16/18) hydroxyzine HCl (Verified Allergy, Unknown, 07/13/14) hydroxyzine pamoate (Verified Allergy, Unknown, 07/13/14) Patient Home Medication List Home Medication List Reviewed: Yes Dabigatran Etexilate Mesylate (Pradaxa) 150 Mg Capsule, 150 MG PO BID, (Reported) Entered as Reported by: ALEYDA VAZQUEZ on 09/16/18950 Doxazosin Mesylate (Doxazosin Mesylate) 4 Mg Tablet, 4 MG PO BID, (Reported) Entered as Reported by: MARY LOU PAUL on 05/07/21 09 Escitalopram Oxalate (Escitalopram Oxalate) 20 Mg Tablet, 30 MG PO HS, (Reported) Entered as Reported by: ALEYDA VAZQUEZ on 09/16/18950 Famotidine (Acid Interior Surface Insulation Worker (FAMOTIDINE)) 20 Mg Tablet, 20 MG PO DAILY, (Reported) Entered as Reported by: MARY LOU PAUL on 05/07/21 09 Glucosa Nicole 2Kcl/Chondroitin Nicole (Glucosamine & Chondroitin Cap) 1 Each Capsule, 1 CAP PO DAILY, (Reported) Entered as Reported by: BALJEET PEREYRA on 09/16/18 154 Lorazepam (Lorazepam) 0.5 Mg Tablet, 0.5 MG PO BID, (Reported) Entered as Reported by: ALEYDA VAZQUEZ on 09/16/18950 Losartan Potassium (Losartan Potassium) 100 Mg Tablet, 100 MG PO DAILY, (Reported) Entered as Reported by: MARY LOU PAUL on 05/07/21942 Metoprolol Succinate (Metoprolol Succinate) 25 Mg Tab.er.24h, 12.5 MG PO HS, (Reported) Entered as Reported by: ALEYDA VAZQUEZ on 09/16/18950 Ranitidine HCl (Ranitidine HCl) 150 Mg Tablet, 150 MG PO DAILY, (Reported) Entered as Reported by: ALEYDA VAZQUEZ on 09/16/18950 Simvastatin (Simvastatin) 20 Mg Tablet, 20 MG PO HS, (Reported) Entered as Reported by: ALEYDA VAZQUEZ on 09/16/18950 Tramadol HCl (Tramadol HCl) 50 Mg Tablet, 50 MG PO DAILY, (Reported) Entered as Reported by: MARY LOU PAUL on 05/07/21942 Review of Systems Constitutional: No chills, No fever EENTM: No blurred vision Respiratory: No cough, No short of breath Cardiovascular: No chest pain, No palpitations; other (Near syncope) Gastrointestinal: No abdominal pain, No nausea, No vomiting Genitourinary: no symptoms reported Musculoskeletal: no symptoms reported Skin: no symptoms reported Psychiatric/Neurological: No Symptoms Reported All Other Systems Reviewed Negative Unless Noted: Yes Past Fuqtwmq-Lfmsxp-Bgojxh Hx Patient Social History Tobacco Use?: No Immunizations Up To Date First/Initial COVID19 Vaccinat: AUGUST 2020 Second COVID19 Vaccination Leonides: SEPTEMBER 2020 Third COVID19 Vaccination Date: APRIL 2021 Seasonal Allergies Seasonal Allergies: No Past Medical History Surgery/Hospitalization HX: A-FIB, HTN Surgeries: Yes (abdominal exploration-BOWEL OBSTRUCTION, PACEMAKER AND REMOVAL,) Abdominal, Bowel Surgery, Pacemaker, Vasectomy Respiratory: No Cardiac: Yes (HX PACEMAKER INSERTION AND REMOVAL, BRADYCARDIA) Atrial Fibrillation, High Cholesterol, Hypertension Neurological: Yes (SYNCOPE FROM BRADYCARDIA) Headaches /Migraines Reproductive Disorders: Yes Sexually Transmitted Disease: No HIV/AIDS: No Genitourinary: No Gastrointestinal: Yes Gastroesophageal Reflux, Polyps Musculoskeletal: Yes (CHRONIC NECK PAIN) Endocrine: No HEENT: Yes Loss of Vision: Bilateral Hearing Impairment: Hard of Hearing Cancer: No Psychosocial: Yes Depression Integumentary: No Blood Disorders: No Adverse Reaction/Blood Tranf: No (N/A) Family Medical History Heart Disease, Hypertension Physical Exam Vital Signs Vital Signs - First Documented 06/26/21 15:45 Temp 35.3 Pulse 57 Resp 20 B/P (MAP) 143/76 (98) Pulse Ox 99 Capillary Refill : Height, Weight, BMI Height: 5'7.00" Weight: 191lbs. 8.0oz. 86.074943vu; 28.00 BMI Method:Stated General Appearance: No Apparent Distress, WD/WN HEENT: PERRL/EOMI, Normal ENT Inspection, Pharynx Normal Neck: Full Range of Motion, Normal Inspection, Non Tender, Supple Cardiovascular: Regular Rate, Rhythm, No Edema, Normal Peripheral Pulses Respiratory: Chest Non Tender, Lungs Clear, Normal Breath Sounds, No Accessory Muscle Use, No Respiratory Distress Gastrointestinal: Normal Bowel Sounds, Non Tender, Soft; No Distended, No Guarding Back: Normal Inspection, No CVA Tenderness Extremities: Normal Capillary Refill, Normal Inspection, Normal Range of Motion, Non Tender, No Calf Tenderness, No Pedal Edema Neurologic/Psychiatric: Alert, Oriented x3, No Motor/Sensory Deficits, Normal Mood/Affect, case supervisor II-XII Norm as Tested, Other (Normal gait, normal [id number]) Cranial Nerves: Normal Hearing, Normal Speech, PERRL Coordination/Gait: Normal Finger to Nose, Normal Gait Motor/Sensory: No Motor Deficit, No Sensory Deficit, No Pronator Drift Skin: Normal Color, Warm/Dry Lymphatic: No Adenopathy Progress/Results/Core Measures Results/Orders Lab Results Laboratory Tests Test 06/26/21 16:13 Range/Units Glucometer 132 H 70-110 MG/DL My Orders Orders - SANDEEP TAYLOR MD Accucheck Stat ONCE (06/26/21 15:55) Ekg Tracing (06/26/21 15:55) Vital Signs/I&O 06/26/21 15:45 Temp 35.3 Pulse 57 Resp 20 B/P (MAP) 143/76 (98) Pulse Ox 99 Progress Progress Note : Progress Note 76-year-old male with above history coming in after a near syncopal episode. ABCs were intact and vitals were stable on presentation. His heart rate is ranging between 56 to the low 60s. On review of his chart this is consistent with his normal range, and the patient corroborates this. EKG obtained with no acute ischemic changes. Glucose is not low on fingerstick. He is overall well- appearing, normal neuro exam, and is back to his baseline with no complaints. Clinically this fits with a vasovagal response due to pain from the needlesticks that he was receiving. I believe he is stable for discharge with outpatient [facility] low-up. He was sent home with strict return precautions Initial ECG Impression Date: Jun 26, 2021 Initial ECG Impression Time: 16:15 Initial ECG Rate: 54 Initial ECG Rhythm: S.Yong Comment Narrow QRS, normal axis, no significant ST changes or T wave abnormalities, QTC 470, no delta wave Departure Impression Primary Impression: Vasovagal near syncope Disposition: 01 HOME, SELF-CARE Condition: Stable Departure-Patient Inst. Decision time for Depature: 16:18 Referrals: SNEHAL BOYLE MD (PCP/Family) Primary Care Physician Patient Instructions: Vasovagal Response (DC) Add. Discharge Instructions: You were seen in the emergency department after you nearly passed out at the doctor's office. This is called a vasovagal response, and is pretty common with things such as needle draws. Sometimes it is due to pain, and sometimes it is due to other emotional responses. Typically when this happens to people, they come back to normal a couple minutes later with no long-term effects. Be sure to drink plenty of fluids and stay hydrated. If you begin passing out regularly in other situations, I would want you to be checked by your doctor or come back to the ER. SANDEEP TAYLOR MD Jun 26, 2021 16:00
[2021-06-26 16:27] VITALS: BP 143/76
== END 2021-06-26 16:26 | disposition home or self-care (01) ==
LOC: EDUNIT# 15:41 → ER 15:42
DX: R55 Syncope and collapse (principal); I10 Essential (primary) hypertension; K21.9 Gastro-esophageal reflux disease without esophagitis; E78.00 Pure hypercholesterolemia, unspecified; F32.9 Major depressive disorder, single episode, unspecified; E11.9 Type 2 diabetes mellitus without complications; I48.91 Unspecified atrial fibrillation; Z91.040 Latex allergy status; Z79.01 Long term (current) use of anticoagulants; Z79.899 Other long term (current) drug therapy
CPT/HCPCS: 82947; 93005